=== PATIENT | female | born 1985 | race African-American/Black ===

== ENCOUNTER 2021-02-04 19:42 | Inpatient (IN) | payer OTHER ==
[2021-02-04] MEDS ORDERED: LACTATED RINGERS SOLUTION 1,000 ML IV STA (20:01)
[2021-02-04] MEDS ORDERED: morphine CARPU-JECT 4 MG/1 ML DISP.SYRIN IVPUSH ONE (20:27)
[2021-02-04] MEDS ORDERED: chlordiazePOXIDE HCL 25 MG CAPSULE PO ONE (20:27)
[2021-02-04 20:34] LABS: BASO % 0.8 % (0-2.0); EOS % 0.9 % (0-4.5); HEMATOCRIT 39.3 % (32.4-45.2); HEMOGLOBIN 12.8 GM/dL (10.7-15.3); LYMPH % 39.8 % (8-40); MCH 26.5 pg (25.7-33.7); MCHC 32.6 g/dl (32.0-36.0); MEAN CELL VOLUME 81.3 fl (80-96); MEAN PLT VOLUME 8.8 fl (7.5-11.1); NEUT % 51.5 % (42.8-82.8); PLATELET COUNT 142 K/MM3 (134-434); RBC 4.83 M/mm3 (3.60-5.2); RDW 16.9 % (11.6-15.6)
[2021-02-04 20:37] LABS: EPI CELLS 19 /uL (0-25.1); HYALINE CASTS 0 /uL (0-3.1); URINE APPEARANCE CLEAR; URINE BACTERIA 326 /uL (0-1359); URINE BILIRUBIN NEGATIVE (NEGATIVE); URINE COLOR YELLOW; URINE GLUCOSE (UA) NEGATIVE (NEGATIVE); URINE KETONE NEGATIVE (NEGATIVE); URINE LEUK ESTERASE TRACE (NEGATIVE); URINE NITRITE NEGATIVE (NEGATIVE); URINE PROTEIN NEGATIVE (NEGATIVE); URINE RBC 28 /uL (0-23.9); URINE WBC 34 /uL (0-25.8)
[2021-02-04 20:45] LABS: OPIATES, URI NEGATIVE ng/ml (CUTOFF=300); PHENCYCLIDINE,URINE NEGATIVE ng/ml (CUTOFF=25); URINE AMPHETAMINES NEGATIVE ng/ml (CUTOFF=500); URINE BARBITURATES NEGATIVE ng/ml (CUTOFF=200)
[2021-02-04 20:46] LABS: COCAINE, UR NEGATIVE ng/ml (CUTOFF=300); METHADONE, UR NEGATIVE ng/ml (CUTOFF=300)
[2021-02-04 20:48] LABS: URINE BENZODIAZEPINES POSITIVE ng/ml (CUTOFF=200)
[2021-02-04 20:57] LABS: CALCIUM 8.5 mg/dL (8.5-10.1)
[2021-02-04 20:58] LABS: ALBUMIN 3.7 g/dl (3.4-5.0); BLOOD UREA NITROGEN 3.8 mg/dL (7-18)
[2021-02-04 21:00] LABS: CREATININE 0.7 mg/dL (0.55-1.3)
[2021-02-04 21:02] LABS: BILIRUBIN,TOTAL 0.4 mg/dL (0.2-1); TOT PROT 7.3 g/dl (6.4-8.2)
[2021-02-04] MEDS ORDERED: LIDOCAINE VISCOUS 2% ORAL/TOP 20 ML UNIT-DOSE CUP MM ONE (21:27)
[2021-02-04] MEDS ORDERED: FAMOTIDINE 10 MG TABLET PO ONE (21:27)
[2021-02-04] MEDS ORDERED: MAG HYDROX/AL HYDROX/SIMETH 30 ML UNIT-DOSE CUP PO ONE (21:27)
[2021-02-04] MEDS ORDERED: LIDOCAINE VISCOUS 2% ORAL/TOP 20 ML UNIT-DOSE CUP ONE (21:31)
[2021-02-04] MEDS ORDERED: morphine SULFATE 4 MG/ML VIAL ONE (21:32)
[2021-02-04] MEDS ORDERED: diazePAM CARPU-JECT 10 MG/2 ML DISP.SYRIN IVPUSH ONE (21:33)
[2021-02-04] MEDS ORDERED: FAMOTIDINE 10 MG TABLET ONE (21:33)
[2021-02-04] MEDS ORDERED: MAG HYDROX/AL HYDROX/SIMETH 30 ML UNIT-DOSE CUP ONE (21:33)
[2021-02-04] MEDS ORDERED: chlordiazePOXIDE HCL 25 MG CAPSULE ONE (21:33)
[2021-02-04] MEDS ORDERED: diazePAM CARPU-JECT 10 MG/2 ML DISP.SYRIN ONE (22:10)
[2021-02-04] MEDS ORDERED: LACTATED RINGERS SOLUTION 1000 ML INFUS.BAG IV ONE (23:54)
[2021-02-05] MEDS ORDERED: morphine CARPU-JECT 4 MG/1 ML DISP.SYRIN IVPUSH ONE (01:47)
[2021-02-05] MEDS ORDERED: MORPHINE SULFATE 2 MG/ML VIAL ONE ×2 (02:31→06:31)
[2021-02-05] MEDS ORDERED: amLODIPine BESYLATE 5 MG TABLET (FP) PO ONE (03:30)
[2021-02-05] MEDS ORDERED: ALBUTEROL SO4 HFA INHALER IH PRN (03:41)
[2021-02-05] MEDS ORDERED: ONDANSETRON 4 MG/2 ML VIAL IVPUSH PRN (03:44)
[2021-02-05] MEDS ORDERED: amLODIPine BESYLATE 5 MG TABLET (FP) ONE (04:19)
[2021-02-05] MEDS: LACTATED RINGERS SOLUTION 1,000 ML IV SCH ×2 (04:27→10:49)
[2021-02-05 05:47] LABS: BASO % 0.9 % (0-2.0); EOS % 0.4 % (0-4.5); HEMATOCRIT 34.5 % (32.4-45.2); HEMOGLOBIN 11.3 GM/dL (10.7-15.3); LYMPH % 41.2 % (8-40); MCH 26.5 pg (25.7-33.7); MCHC 32.9 g/dl (32.0-36.0); MEAN CELL VOLUME 80.6 fl (80-96); MEAN PLT VOLUME 8.4 fl (7.5-11.1); MONO % 8.3 % (3.8-10.2); NEUT % 49.2 % (42.8-82.8); PLATELET COUNT 113 K/MM3 (134-434); RBC 4.27 M/mm3 (3.60-5.2); RDW 16.9 % (11.6-15.6); WHITE BLOOD COUNT 4.5 K/mm3 (4.0-10.0)
[2021-02-05 06:03] LABS: BLOOD UREA NITROGEN 4.2 mg/dL (7-18); MAGNESIUM 1.7 mg/dL (1.8-2.4)
[2021-02-05 06:06] LABS: CREATININE 0.7 mg/dL (0.55-1.3)
[2021-02-05] MEDS ORDERED: MAGNESIUM SULF 50% (8.12 MEQ/2 ML-1 GM VIAL) IVPB ONE (06:06)
[2021-02-05 06:08] LABS: TOT PROT 5.9 g/dl (6.4-8.2)
[2021-02-05] MEDS ORDERED: MAGNESIUM SULFATE IN WATER 2 GM/50 ML IVPB IVPB ONE (06:21)
[2021-02-05] MEDS ORDERED: LORazepam 2 MG/ML SDV VIAL ONE ×2 (06:30→09:26)
[2021-02-05] MEDS: ' IVPUSH PRN ×4 (06:48→21:06)
[2021-02-05] MEDS: LORazepam 2 MG/ML SDV VIAL IVPUSH PRN ×2 (06:48→09:37)
[2021-02-05] MEDS ORDERED: ENOXAPARIN NA (PORCINE) 40 MG/0.4 ML DISP.SYRIN SQ ONE (09:21)
[2021-02-05] MEDS ORDERED: THIAMINE HCL 200 MG/2 ML VIAL ONE (09:21)
[2021-02-05] MEDS: THIAMINE HCL 200 MG/2 ML VIAL IVPB SCH (09:30)
[2021-02-05] MEDS: ENOXAPARIN NA (PORCINE) 40 MG/0.4 ML DISP.SYRIN SQ SCH (09:30)
[2021-02-05 13:24] VITALS: BMI 24.5
[2021-02-05] MEDS ORDERED: LORazepam 2 MG TABLET PO ONE (17:08)
[2021-02-05] MEDS ORDERED: LORazepam 1 MG TABLET PO PRN (17:08)
[2021-02-05] MEDS: LACTATED RINGERS SOLUTION 1,000 ML/1,000 ML INFUS.BAG IV SCH (17:55)
[2021-02-05] MEDS: LORazepam 1 MG TABLET PO SCH ×2 (17:56→23:04)
[2021-02-06] MEDS: LACTATED RINGERS SOLUTION 1,000 ML/1,000 ML INFUS.BAG IV SCH ×3 (01:45→23:19)
[2021-02-06] MEDS: ' IVPUSH PRN ×5 (01:49→21:53)
[2021-02-06] MEDS: LORazepam 1 MG TABLET PO SCH ×4 (04:46→22:21)
[2021-02-06 08:52] LABS: BASO % 0.4 % (0-2.0); EOS % 1.4 % (0-4.5); HEMATOCRIT 33.8 % (32.4-45.2); HEMOGLOBIN 10.9 GM/dL (10.7-15.3); LYMPH % 34.4 % (8-40); MCH 26.3 pg (25.7-33.7); MCHC 32.2 g/dl (32.0-36.0); MEAN CELL VOLUME 81.6 fl (80-96); MEAN PLT VOLUME 9.2 fl (7.5-11.1); MONO % 8.6 % (3.8-10.2); NEUT % 55.2 % (42.8-82.8); PLATELET COUNT 104 K/MM3 (134-434); RBC 4.14 M/mm3 (3.60-5.2); RDW 17.2 % (11.6-15.6); WHITE BLOOD COUNT 3.5 K/mm3 (4.0-10.0)
[2021-02-06 09:09] LABS: INR 0.95 (0.83-1.09); PROTHROMBIN TIME (PATIENT) 11.7 SEC (9.7-13.0)
[2021-02-06 09:28] LABS: ALBUMIN 2.9 g/dl (3.4-5.0)
[2021-02-06 09:30] LABS: BILIRUBIN,DIRECT 0.3 mg/dL (0.0-0.2)
[2021-02-06 09:32] LABS: BILIRUBIN,TOTAL 0.8 mg/dL (0.2-1); TOT PROT 5.7 g/dl (6.4-8.2)
[2021-02-06 09:35] LABS: CALCIUM 8.4 mg/dL (8.5-10.1)
[2021-02-06 09:36] LABS: BLOOD UREA NITROGEN 4.3 mg/dL (7-18); MAGNESIUM 2.2 mg/dL (1.8-2.4)
[2021-02-06 09:39] LABS: CREATININE 0.6 mg/dL (0.55-1.3); PHOSPHOROUS 3.8 mg/dL (2.5-4.9)
[2021-02-06] MEDS ORDERED: DEXTROSE 10%-WATER - 1,000 ML IV SCH (10:00)
[2021-02-06] MEDS ORDERED: amLODIPine BESYLATE 5 MG TABLET (FP) PO SCH (10:00)
[2021-02-06] MEDS ORDERED: D5-1/2NS+40 MEQ KCL - 40 MEQ/1,000 ML INFUS.BAG IV SCH (10:00)
[2021-02-06] MEDS ORDERED: DEXTROSE 5%-LACTATED RINGERS 1,000 ML IV SCH ×2 (10:00)
[2021-02-06] MEDS: amLODIPine BESYLATE 5 MG TABLET (FP) PO SCH (10:32)
[2021-02-06] MEDS: ENOXAPARIN NA (PORCINE) 40 MG/0.4 ML DISP.SYRIN SQ SCH (10:33)
[2021-02-06] MEDS: THIAMINE HCL 200 MG/2 ML VIAL IVPB SCH (10:34)
[2021-02-06] MEDS ORDERED: PT OWN MED DRAWER 7, Y5N ONE (14:28)
[2021-02-07] MEDS: ' IVPUSH PRN ×2 (02:05→06:53)
[2021-02-07] MEDS: LACTATED RINGERS SOLUTION 1,000 ML/1,000 ML INFUS.BAG IV SCH ×2 (04:20→10:44)
[2021-02-07] MEDS: LORazepam 1 MG TABLET PO SCH ×3 (05:31→17:00)
[2021-02-07 08:34] LABS: BASO % 0.6 % (0-2.0); EOS % 1.6 % (0-4.5); HEMATOCRIT 34.4 % (32.4-45.2); HEMOGLOBIN 11.2 GM/dL (10.7-15.3); LYMPH % 42.6 % (8-40); MCH 26.2 pg (25.7-33.7); MCHC 32.4 g/dl (32.0-36.0); MEAN CELL VOLUME 80.8 fl (80-96); MEAN PLT VOLUME 9.5 fl (7.5-11.1); MONO % 9.5 % (3.8-10.2); NEUT % 45.7 % (42.8-82.8); PLATELET COUNT 105 K/MM3 (134-434); RBC 4.26 M/mm3 (3.60-5.2); RDW 17.6 % (11.6-15.6); WHITE BLOOD COUNT 4.2 K/mm3 (4.0-10.0)
[2021-02-07 08:36] LABS: CHLORIDE 107 mmol/L (98-107); SODIUM 141 mmol/L (136-145)
[2021-02-07 08:42] LABS: ANION GAP 5 MMOL/L (8-16); CO2 30 mmol/L (21-32); MAGNESIUM 2.1 mg/dL (1.8-2.4); SGPT/ALT 44 U/L (13-61)
[2021-02-07 08:43] LABS: CREATININE 0.6 mg/dL (0.55-1.3); SGOT/AST 81 U/L (15-37)
[2021-02-07 08:47] LABS: CALCIUM 8.8 mg/dL (8.5-10.1)
[2021-02-07 08:49] LABS: ALK PHOS 156 U/L (45-117); BILIRUBIN,TOTAL 0.5 mg/dL (0.2-1); GLUCOSE,RANDOM 89 mg/dL (74-106); LDL CHOLESTEROL (ONLY SJRH) 42 mg/dL (5-100)
[2021-02-07 08:50] LABS: HDL CHOLESTEROL 127 mg/dL (40-60)
[2021-02-07 08:51] LABS: CHOLESTEROL 193 mg/dL (50-200); PHOSPHOROUS 4.6 mg/dL (2.5-4.9)
[2021-02-07 08:52] LABS: TRIGLYCERIDES 83 mg/dL (0-150)
[2021-02-07 09:01] LABS: BLOOD UREA NITROGEN 2.9 mg/dL (7-18)
[2021-02-07] MEDS: amLODIPine BESYLATE 5 MG TABLET (FP) PO SCH (09:17)
[2021-02-07] MEDS: ENOXAPARIN NA (PORCINE) 40 MG/0.4 ML DISP.SYRIN SQ SCH (09:17)
[2021-02-07] MEDS: THIAMINE HCL 200 MG/2 ML VIAL IVPB SCH (09:18)
[2021-02-07] MEDS ORDERED: POTASSIUM CHLORIDE TABS 20 MEQ TABLET.ER (FP) PO ONE (09:28)
[2021-02-07] MEDS ORDERED: ACETAMINOPHEN 325 MG TABLET (FP) PO PRN (10:12)
[2021-02-07 15:27] VITALS: BP 128/80; PULSE 72; TEMP 98.8
[2021-02-07 17:07] LABS: HEP B CORE AB, TOT Positive (Negative)
[2021-02-08] MEDS ORDERED: LORazepam 0.5 MG TABLET PO PRN
[2021-02-08] MEDS ORDERED: LORazepam 0.5 MG TABLET PO SCH (05:00)
[2021-02-09] MEDS ORDERED: LORazepam 0.5 MG TABLET PO ONE (05:00)
== END 2021-02-07 18:23 | disposition other institution (70) | DRG 282 ==
LOC: JER 19:42 → JERBED 02-05 02:35 → J5S 02-05 09:39
PROVIDERS: ADMIT Internal Medicine; ATTEND Student in an Organized Health Care Education/Training Program
PROC: HZ2ZZZZ Detoxification Services for Substance Abuse Treatment (ICD-10-PCS; principal; 2021-02-05)
DX: K85.20 Alcohol induced acute pancreatitis without necrosis or infection (principal); I10 Essential (primary) hypertension; F10.239 Alcohol dependence with withdrawal, unspecified; F10.288 Alcohol dependence with other alcohol-induced disorder; F17.210 Nicotine dependence, cigarettes, uncomplicated; D69.59 Other secondary thrombocytopenia; D61.818 Other pancytopenia; D72.819 Decreased white blood cell count, unspecified
CPT/HCPCS: 36415; 74177-TC; 74181-TC; 76705-TC; 80048; 80053; 80061; 80076; 80307; 81003; 82103; 82607; 82728; 82746; 83516; 83540; 83550; 83690; 83721; 83735; 84100; 84703; 85025; 85610; 86038; 86704; 86706; 86707; 86708; 86709; 87086; 87340; 87522; 93005; 93010; 97116-GP; 97162-GP; 99285-25; C9803; Q9967; U0003; U0005

== ENCOUNTER 2021-02-07 18:52 | Inpatient (IN) | payer OTHER ==
[2021-02-07 19:42] VITALS: BMI 24.8
[2021-02-07] MEDS ORDERED: LORazepam 0.5 MG TABLET PO PRN (20:44)
[2021-02-07] MEDS ORDERED: METHOCARBAMOL 500 MG TABLET PO PRN (20:47)
[2021-02-07] MEDS ORDERED: ACETAMINOPHEN 325 MG TABLET (FP) PO PRN ×2 (20:47)
[2021-02-07] MEDS ORDERED: MAGNESIUM CITRATE 300 ML BOTTLE PO PRN (20:47)
[2021-02-07] MEDS ORDERED: BISMUTH SUBSALICYLATE 524 MG/30 ML UD PO PRN (20:47)
[2021-02-07] MEDS ORDERED: MENTHOL/PHENOL 1 EACH UD MM PRN (20:47)
[2021-02-07] MEDS ORDERED: NICOTINE POLACRILEX 2 MG GUM BUC PRN (20:47)
[2021-02-07] MEDS ORDERED: ONDANSETRON *ODT* 4 MG TABLET SL PRN (20:47)
[2021-02-07] MEDS ORDERED: MAGNESIUM HYDROX 2400MG/30ML ORAL SUSPENSION 30 ML CUP PO PRN (20:47)
[2021-02-07] MEDS ORDERED: IBUPROFEN 400 MG TABLET (FP) PO PRN (20:47)
[2021-02-07] MEDS ORDERED: MAG HYDROX/AL HYDROX/SIMETH 30 ML UNIT-DOSE CUP PO PRN (20:47)
[2021-02-07] MEDS ORDERED: LORazepam 1 MG TABLET PO ONE (22:00)
[2021-02-07] MEDS: THIAMINE HCL 100 MG TABLET (FP) PO SCH (23:29)
[2021-02-07] MEDS: hydrOXYzine PAMOATE 25 MG CAPSULE (FP) PO SCH (23:29)
[2021-02-07] MEDS: MELATONIN 5 MG TABLETS PO SCH (23:35)
[2021-02-08] MEDS: hydrOXYzine PAMOATE 25 MG CAPSULE (FP) PO SCH ×5 (06:04→22:27)
[2021-02-08] MEDS: LORazepam 0.5 MG TABLET PO SCH ×4 (06:04→22:25)
[2021-02-08] MEDS ORDERED: amLODIPine BESYLATE 5 MG TABLET (FP) PO SCH (10:00)
[2021-02-08] MEDS: PRENATAL VITAMINS W/ FOLIC ACID TABLET (FP) PO SCH (10:24)
[2021-02-08] MEDS ORDERED: ALBUTEROL SO4 HFA INHALER IH PRN (11:38)
[2021-02-08] MEDS: MELATONIN 5 MG TABLETS PO SCH (22:27)
[2021-02-08] MEDS: THIAMINE HCL 100 MG TABLET (FP) PO SCH (22:27)
[2021-02-09] MEDS: LORazepam 0.5 MG TABLET PO SCH ×2 (06:14→18:07)
[2021-02-09] MEDS: hydrOXYzine PAMOATE 25 MG CAPSULE (FP) PO SCH ×5 (06:16→22:42)
[2021-02-09] MEDS ORDERED: amLODIPine BESYLATE 10 MG TABLET (FP) PO SCH (10:00)
[2021-02-09] MEDS: PRENATAL VITAMINS W/ FOLIC ACID TABLET (FP) PO SCH (11:02)
[2021-02-09] MEDS: MELATONIN 5 MG TABLETS PO SCH (22:42)
[2021-02-09] MEDS: THIAMINE HCL 100 MG TABLET (FP) PO SCH (22:42)
[2021-02-10] MEDS ORDERED: LORazepam 0.5 MG TABLET PO ONE (05:00)
[2021-02-10] MEDS: hydrOXYzine PAMOATE 25 MG CAPSULE (FP) PO SCH (05:58)
[2021-02-10 09:25] VITALS: BP 122/77; PULSE 50; TEMP 98
[2021-02-11 07:07] LABS: SARS-CoV-2 NAA NOT DETECTED
== END 2021-02-10 10:00 | disposition home or self-care (01) | DRG 775 ==
LOC: YASAS 18:52 → Y6N 22:04
PROVIDERS: ADMIT Allergy & Immunology; ATTEND Allergy & Immunology
PROC: HZ2ZZZZ Detoxification Services for Substance Abuse Treatment (ICD-10-PCS; principal; 2021-02-07)
DX: F10.230 Alcohol dependence with withdrawal, uncomplicated (principal); F13.230 Sedative, hypnotic or anxiolytic dependence with withdrawal, uncomplicated; F17.210 Nicotine dependence, cigarettes, uncomplicated; I10 Essential (primary) hypertension; J45.909 Unspecified asthma, uncomplicated; K82.1 Hydrops of gallbladder; K85.20 Alcohol induced acute pancreatitis without necrosis or infection; Z91.048 Other nonmedicinal substance allergy status
CPT/HCPCS: 36415; 71046-TC-FY; 81025; 86780; C9803; U0003; U0005

== ENCOUNTER 2021-02-28 18:22 | Inpatient (IN) | payer OTHER ==
[2021-02-28] MEDS ORDERED: LACTATED RINGERS SOLUTION 1000 ML INFUS.BAG IV ONE (19:28)
[2021-02-28] MEDS ORDERED: ACETAMINOPHEN 1000 MG/100 ML VIAL (NON FORMULARY) IVPB ONE (19:28)
[2021-02-28 19:48] LABS: BASO % 0.4 % (0-2.0); EOS % 0.5 % (0-4.5); HEMATOCRIT 40.2 % (32.4-45.2); HEMOGLOBIN 12.9 GM/dL (10.7-15.3); LYMPH % 36.5 % (8-40); MEAN CELL VOLUME 81.1 fl (80-96); MEAN PLT VOLUME 9.2 fl (7.5-11.1); MONO % 12.6 % (3.8-10.2); PLATELET COUNT 147 K/MM3 (134-434); RBC 4.96 M/mm3 (3.60-5.2); RDW 20.4 % (11.6-15.6); WHITE BLOOD COUNT 3.5 K/mm3 (4.0-10.0)
[2021-02-28] MEDS ORDERED: ONDANSETRON 4 MG/2 ML VIAL IVPUSH ONE (19:59)
[2021-02-28 20:03] LABS: CALCIUM 8.9 mg/dL (8.5-10.1)
[2021-02-28 20:04] LABS: ALBUMIN 3.2 g/dl (3.4-5.0); BLOOD UREA NITROGEN 5.4 mg/dL (7-18)
[2021-02-28 20:07] LABS: CREATININE 0.6 mg/dL (0.55-1.3)
[2021-02-28 20:08] LABS: BILIRUBIN,TOTAL 0.5 mg/dL (0.2-1)
[2021-02-28] MEDS ORDERED: FAMOTIDINE 20 MG/50 ML IVPB 20 MG/50 ML MG IVPB ONE ×2 (20:27→20:34)
[2021-02-28] MEDS ORDERED: ONDANSETRON 4 MG/2 ML VIAL ONE (20:33)
[2021-02-28 20:47] LABS: EPI CELLS 9 /uL (0-25.1); HYALINE CASTS 1 /uL (0-3.1); PH,URINE 5.5 (5.0-8.0); URINE APPEARANCE CLEAR; URINE BACTERIA 209 /uL (0-1359); URINE BILIRUBIN NEGATIVE (NEGATIVE); URINE COLOR YELLOW; URINE GLUCOSE (UA) NEGATIVE (NEGATIVE); URINE KETONE NEGATIVE (NEGATIVE); URINE LEUK ESTERASE NEGATIVE (NEGATIVE); URINE NITRITE NEGATIVE (NEGATIVE); URINE PROTEIN NEGATIVE (NEGATIVE); URINE RBC 3 /uL (0-23.9); URINE WBC 7 /uL (0-25.8)
[2021-02-28] MEDS ORDERED: morphine CARPU-JECT 2 MG/1 ML DISP.SYRIN IVPUSH ONE (21:18)
[2021-02-28] MEDS ORDERED: HYDROmorphone HCL CARPU-JECT 2 MG/1 ML DISP.SYRIN IVPUSH STA (23:14)
[2021-02-28] MEDS ORDERED: MORPHINE SULFATE 2 MG/ML VIAL ONE (23:29)
[2021-03-01] MEDS ORDERED: SODIUM CHLORIDE 0.9% 500 ML INFUS.BAG IV ONE (00:52)
[2021-03-01] MEDS ORDERED: LORazepam 2 MG/ML SDV VIAL IVPUSH ONE ×2 (00:53→01:04)
[2021-03-01] MEDS ORDERED: LORazepam 2 MG/ML SDV VIAL ONE (01:25)
[2021-03-01] MEDS ORDERED: THIAMINE HCL 200 MG/2 ML VIAL IVPB SCH (02:45)
[2021-03-01] MEDS ORDERED: LACTATED RINGERS SOLUTION 1,000 ML IV SCH (03:15)
[2021-03-01] MEDS ORDERED: LORazepam 1 MG TABLET PO PRN (03:18)
[2021-03-01] MEDS ORDERED: MAG HYDROX/AL HYDROX/SIMETH 30 ML UNIT-DOSE CUP PO PRN (03:19)
[2021-03-01] MEDS ORDERED: FOLIC ACID INJECTION - 1 MG, THIAMINE HCL 200 MG, MULTIVIT INJECTION ADULT 10 ML in SOD... IVPB ONE (04:45)
[2021-03-01] MEDS ORDERED: LORazepam 1 MG TABLET ONE (05:16)
[2021-03-01] MEDS: LORazepam 1 MG TABLET PO SCH ×4 (05:19→22:28)
[2021-03-01 05:29] LABS: INR 0.97 (0.83-1.09)
[2021-03-01 05:35] LABS: ALBUMIN 2.9 g/dl (3.4-5.0); BLOOD UREA NITROGEN 5.4 mg/dL (7-18); CALCIUM 8.2 mg/dL (8.5-10.1); MAGNESIUM 2.1 mg/dL (1.8-2.4)
[2021-03-01 05:38] LABS: BILIRUBIN,DIRECT 0.4 mg/dL (0.0-0.2)
[2021-03-01 05:39] LABS: PHOSPHOROUS 4.3 mg/dL (2.5-4.9)
[2021-03-01 05:40] LABS: BILIRUBIN,TOTAL 0.8 mg/dL (0.2-1); TOT PROT 6.1 g/dl (6.4-8.2)
[2021-03-01 05:47] LABS: CREATININE 0.6 mg/dL (0.55-1.3)
[2021-03-01] MEDS: FOLIC ACID 1 MG TABLET (FP) PO SCH (10:50)
[2021-03-01] MEDS: ENOXAPARIN NA (PORCINE) 40 MG/0.4 ML DISP.SYRIN SQ SCH (10:50)
[2021-03-01] MEDS: amLODIPine BESYLATE 5 MG TABLET (FP) PO SCH (10:50)
[2021-03-01] MEDS: THIAMINE HCL 100 MG TABLET (FP) PO SCH ×2 (10:50→22:28)
[2021-03-01] MEDS ORDERED: PNEUMOC 13-VAL CONJ-DIP CRM/PF 0.5 ML DISP.SYRIN IM ONE (12:05)
[2021-03-01 12:15] VITALS: BMI 23.7
[2021-03-01] MEDS ORDERED: PNEUMOCOCCAL 23 VACCINE 0.5 ML VIAL IM ONE (12:15)
[2021-03-01] MEDS: MORPHINE SULFATE 2 MG/ML VIAL IVPUSH PRN ×3 (12:46→22:32)
[2021-03-01] MEDS ORDERED: LACTATED RINGERS SOLUTION 1,000 ML/1,000 ML INFUS.BAG IV SCH (13:00)
[2021-03-01] MEDS: LACTATED RINGERS SOLUTION 1,000 ML/1,000 ML INFUS.BAG IV SCH (17:34)
[2021-03-02] MEDS: MORPHINE SULFATE 2 MG/ML VIAL IVPUSH PRN ×5 (02:07→20:17)
[2021-03-02] MEDS: LACTATED RINGERS SOLUTION 1,000 ML/1,000 ML INFUS.BAG IV SCH ×3 (03:44→20:53)
[2021-03-02] MEDS: LORazepam 1 MG TABLET PO SCH ×4 (05:19→23:27)
[2021-03-02 06:56] LABS: BASO % 0.3 % (0-2.0); HEMATOCRIT 34.1 % (32.4-45.2); HEMOGLOBIN 10.8 GM/dL (10.7-15.3); LYMPH % 34.6 % (8-40); MCHC 31.7 g/dl (32.0-36.0); MEAN CELL VOLUME 81.9 fl (80-96); MEAN PLT VOLUME 9.7 fl (7.5-11.1); MONO % 10.9 % (3.8-10.2); NEUT % 53.2 % (42.8-82.8); PLATELET COUNT 99 K/MM3 (134-434); RBC 4.16 M/mm3 (3.60-5.2); RDW 20.7 % (11.6-15.6); WHITE BLOOD COUNT 4.3 K/mm3 (4.0-10.0)
[2021-03-02 07:22] LABS: BLOOD UREA NITROGEN 5.7 mg/dL (7-18); CALCIUM 8.7 mg/dL (8.5-10.1)
[2021-03-02 07:23] LABS: MAGNESIUM 2.2 mg/dL (1.8-2.4)
[2021-03-02 07:26] LABS: CREATININE 0.6 mg/dL (0.55-1.3); PHOSPHOROUS 3.3 mg/dL (2.5-4.9)
[2021-03-02 08:59] LABS: ALBUMIN 2.5 g/dl (3.4-5.0)
[2021-03-02 09:01] LABS: BILIRUBIN,DIRECT 0.5 mg/dL (0.0-0.2)
[2021-03-02 09:03] LABS: TOT PROT 5.3 g/dl (6.4-8.2)
[2021-03-02 09:04] LABS: BILIRUBIN,TOTAL 1.1 mg/dL (0.2-1)
[2021-03-02] MEDS: ENOXAPARIN NA (PORCINE) 40 MG/0.4 ML DISP.SYRIN SQ SCH (09:53)
[2021-03-02] MEDS: THIAMINE HCL 100 MG TABLET (FP) PO SCH ×2 (09:54→22:08)
[2021-03-02] MEDS: FOLIC ACID 1 MG TABLET (FP) PO SCH (09:54)
[2021-03-02] MEDS: amLODIPine BESYLATE 5 MG TABLET (FP) PO SCH (09:54)
[2021-03-02 11:04] LABS: ANISOCYTOSIS 2+; MACROCYTOSIS 0; OVALOCYTE 2+; PLATELET ESTIMATE DECREASED; TARGET CELLS 2+; TEAR DROP CELLS 1+
[2021-03-02] MEDS ORDERED: DEXTROSE 5%-WATER - 50 ML IVPB ONE (16:45)
[2021-03-02] MEDS ORDERED: PIPERACILLIN/TAZOBACTAM 3.375 GM VIAL IVPB ONE (16:45)
[2021-03-02] MEDS: PIPERACILLIN/TAZOB 3.375 GM 3.375 GM in DEXTROSE 5%-WATER - 50 ML IVPB SCH (17:54)
[2021-03-03] MEDS ORDERED: LORazepam 0.5 MG TABLET PO PRN
[2021-03-03] MEDS: MORPHINE SULFATE 2 MG/ML VIAL IVPUSH PRN ×5 (00:28→19:45)
[2021-03-03] MEDS: LACTATED RINGERS SOLUTION 1,000 ML/1,000 ML INFUS.BAG IV SCH ×5 (01:06→19:39)
[2021-03-03] MEDS ORDERED: PIPERACILLIN/TAZOBACTAM 3.375 GM VIAL IVPB ONE ×2 (01:38→08:43)
[2021-03-03] MEDS ORDERED: DEXTROSE 5%-WATER - 50 ML IVPB ONE ×2 (01:38→08:44)
[2021-03-03] MEDS: PIPERACILLIN/TAZOB 3.375 GM 3.375 GM in DEXTROSE 5%-WATER - 50 ML IVPB SCH ×2 (01:49→09:10)
[2021-03-03] MEDS: LORazepam 0.5 MG TABLET PO SCH ×4 (05:19→23:13)
[2021-03-03 07:20] LABS: BASO % 0.3 % (0-2.0); EOS % 0.8 % (0-4.5); HEMATOCRIT 33.6 % (32.4-45.2); HEMOGLOBIN 10.9 GM/dL (10.7-15.3); LYMPH % 25.4 % (8-40); MCH 26.5 pg (25.7-33.7); MCHC 32.4 g/dl (32.0-36.0); MEAN CELL VOLUME 81.9 fl (80-96); MEAN PLT VOLUME 9.5 fl (7.5-11.1); MONO % 11.2 % (3.8-10.2); NEUT % 62.3 % (42.8-82.8); PLATELET COUNT 89 K/MM3 (134-434); RDW 21.7 % (11.6-15.6); WHITE BLOOD COUNT 4.5 K/mm3 (4.0-10.0)
[2021-03-03 07:43] LABS: BLOOD UREA NITROGEN 4.1 mg/dL (7-18); CALCIUM 8.8 mg/dL (8.5-10.1)
[2021-03-03 07:44] LABS: ALBUMIN 2.6 g/dl (3.4-5.0)
[2021-03-03 07:46] LABS: BILIRUBIN,DIRECT 0.4 mg/dL (0.0-0.2)
[2021-03-03 07:47] LABS: CREATININE 0.5 mg/dL (0.55-1.3); PHOSPHOROUS 3.8 mg/dL (2.5-4.9)
[2021-03-03 07:48] LABS: BILIRUBIN,TOTAL 0.8 mg/dL (0.2-1); TOT PROT 5.3 g/dl (6.4-8.2)
[2021-03-03] MEDS: amLODIPine BESYLATE 5 MG TABLET (FP) PO SCH (09:10)
[2021-03-03] MEDS: FOLIC ACID 1 MG TABLET (FP) PO SCH (09:21)
[2021-03-03] MEDS: THIAMINE HCL 100 MG TABLET (FP) PO SCH ×2 (09:22→21:02)
[2021-03-03] MEDS ORDERED: PIPERACILLIN/TAZOB 3.375 GM 3.375 GM in DEXTROSE 5%-WATER - 50 ML IVPB SCH (18:00)
[2021-03-04] MEDS: MORPHINE SULFATE 2 MG/ML VIAL IVPUSH PRN ×5 (00:37→19:51)
[2021-03-04] MEDS: LACTATED RINGERS SOLUTION 1,000 ML/1,000 ML INFUS.BAG IV SCH ×4 (04:15→23:50)
[2021-03-04] MEDS ORDERED: LORazepam 0.5 MG TABLET PO ONE (05:00)
[2021-03-04 07:45] LABS: BASO % 0.3 % (0-2.0); EOS % 0.6 % (0-4.5); HEMOGLOBIN 10.9 GM/dL (10.7-15.3); LYMPH % 27.8 % (8-40); MCH 26.2 pg (25.7-33.7); MEAN CELL VOLUME 81.7 fl (80-96); MEAN PLT VOLUME 9.6 fl (7.5-11.1); MONO % 14.1 % (3.8-10.2); NEUT % 57.2 % (42.8-82.8); PLATELET COUNT 92 K/MM3 (134-434); RBC 4.16 M/mm3 (3.60-5.2); RDW 21.7 % (11.6-15.6)
[2021-03-04 08:08] LABS: ALBUMIN 2.5 g/dl (3.4-5.0); CALCIUM 8.6 mg/dL (8.5-10.1)
[2021-03-04 08:10] LABS: BLOOD UREA NITROGEN 3.4 mg/dL (7-18)
[2021-03-04 08:13] LABS: CREATININE 0.4 mg/dL (0.55-1.3)
[2021-03-04 08:14] LABS: BILIRUBIN,TOTAL 0.9 mg/dL (0.2-1); TOT PROT 5.5 g/dl (6.4-8.2)
[2021-03-04 08:55] LABS: ANISOCYTOSIS 1+; PLATELET ESTIMATE DECREASED; TARGET CELLS 1+
[2021-03-04] MEDS: MULTIVITAMINS (DAILY MVI) TABLET (FP) PO SCH (10:35)
[2021-03-04] MEDS: THIAMINE HCL 100 MG TABLET (FP) PO SCH ×2 (10:35→21:25)
[2021-03-04] MEDS: FOLIC ACID 1 MG TABLET (FP) PO SCH (10:35)
[2021-03-04] MEDS: amLODIPine BESYLATE 5 MG TABLET (FP) PO SCH (10:35)
[2021-03-05] MEDS: MORPHINE SULFATE 2 MG/ML VIAL IVPUSH PRN ×5 (00:29→18:48)
[2021-03-05] MEDS: LACTATED RINGERS SOLUTION 1,000 ML/1,000 ML INFUS.BAG IV SCH ×5 (06:46→21:23)
[2021-03-05 07:24] LABS: BASO % 0.2 % (0-2.0); EOS % 0.7 % (0-4.5); HEMATOCRIT 34.4 % (32.4-45.2); MCH 26.3 pg (25.7-33.7); MCHC 32.1 g/dl (32.0-36.0); MEAN CELL VOLUME 82.1 fl (80-96); MEAN PLT VOLUME 9.7 fl (7.5-11.1); MONO % 19.6 % (3.8-10.2); NEUT % 52.5 % (42.8-82.8); PLATELET COUNT 99 K/MM3 (134-434); RDW 22.4 % (11.6-15.6)
[2021-03-05 08:07] LABS: ALBUMIN 2.6 g/dl (3.4-5.0); CALCIUM 8.6 mg/dL (8.5-10.1)
[2021-03-05 08:10] LABS: BILIRUBIN,TOTAL 0.6 mg/dL (0.2-1); CREATININE 0.3 mg/dL (0.55-1.3); TOT PROT 5.4 g/dl (6.4-8.2)
[2021-03-05 08:55] LABS: ANISOCYTOSIS 1+; MACROCYTOSIS 1+; PLATELET ESTIMATE DECREASED; TARGET CELLS 1+
[2021-03-05] MEDS: MULTIVITAMINS (DAILY MVI) TABLET (FP) PO SCH (09:34)
[2021-03-05] MEDS: THIAMINE HCL 100 MG TABLET (FP) PO SCH ×2 (09:35→21:23)
[2021-03-05] MEDS: FOLIC ACID 1 MG TABLET (FP) PO SCH (09:35)
[2021-03-05] MEDS: amLODIPine BESYLATE 5 MG TABLET (FP) PO SCH (09:35)
[2021-03-05] MEDS: ENOXAPARIN NA (PORCINE) 40 MG/0.4 ML DISP.SYRIN SQ SCH (09:36)
[2021-03-06] MEDS: MORPHINE SULFATE 2 MG/ML VIAL IVPUSH PRN ×2 (00:53→05:54)
[2021-03-06] MEDS: LACTATED RINGERS SOLUTION 1,000 ML/1,000 ML INFUS.BAG IV SCH ×3 (00:55→10:00)
[2021-03-06 06:05] VITALS: PULSE 59
[2021-03-06] MEDS ORDERED: MORPHINE SULFATE 2 MG/ML VIAL IVPUSH PRN (08:08)
[2021-03-06 08:10] LABS: CHLORIDE 109 mmol/L (98-107); SODIUM 141 mmol/L (136-145)
[2021-03-06 08:11] LABS: CALCIUM 8.3 mg/dL (8.5-10.1)
[2021-03-06 08:12] LABS: ALBUMIN 2.4 g/dl (3.4-5.0); ANION GAP 7 MMOL/L (8-16); CO2 26 mmol/L (21-32); GLUCOSE,RANDOM 86 mg/dL (74-106)
[2021-03-06 08:15] LABS: CREATININE 0.4 mg/dL (0.55-1.3); SGOT/AST 184 U/L (15-37); SGPT/ALT 77 U/L (13-61)
[2021-03-06 08:17] LABS: BILIRUBIN,TOTAL 0.7 mg/dL (0.2-1); TOT PROT 5.3 g/dl (6.4-8.2)
[2021-03-06 08:18] LABS: ALK PHOS 162 U/L (45-117)
[2021-03-06 08:25] LABS: BLOOD UREA NITROGEN 1.6 mg/dL (7-18)
[2021-03-06 08:41] LABS: BASO % 0.4 % (0-2.0); EOS % 0.7 % (0-4.5); HEMATOCRIT 32.9 % (32.4-45.2); HEMOGLOBIN 10.5 GM/dL (10.7-15.3); MCH 26.3 pg (25.7-33.7); MEAN PLT VOLUME 9.5 fl (7.5-11.1); MONO % 19.5 % (3.8-10.2); NEUT % 50.4 % (42.8-82.8); PLATELET COUNT 108 K/MM3 (134-434); RBC 4.01 M/mm3 (3.60-5.2); RDW 22.3 % (11.6-15.6); WHITE BLOOD COUNT 4.8 K/mm3 (4.0-10.0)
[2021-03-06] MEDS ORDERED: PT OWN MED DRAWER 7, Y5N ONE (08:59)
[2021-03-06] MEDS: FOLIC ACID 1 MG TABLET (FP) PO SCH (10:00)
[2021-03-06] MEDS: THIAMINE HCL 100 MG TABLET (FP) PO SCH (10:00)
[2021-03-06] MEDS: MULTIVITAMINS (DAILY MVI) TABLET (FP) PO SCH (10:00)
[2021-03-06] MEDS: ENOXAPARIN NA (PORCINE) 40 MG/0.4 ML DISP.SYRIN SQ SCH (10:00)
[2021-03-06] MEDS: amLODIPine BESYLATE 5 MG TABLET (FP) PO SCH (10:00)
[2021-03-06 14:09] VITALS: BP 136/89; TEMP 98.1
== END 2021-03-06 18:41 | disposition home or self-care (01) | DRG 282 ==
LOC: JER 18:22 → JERBED 03-01 02:06 → J7W 03-01 09:34
PROVIDERS: ADMIT Hospitalist; ATTEND Internal Medicine
PROC: HZ2ZZZZ Detoxification Services for Substance Abuse Treatment (ICD-10-PCS; principal; 2021-03-01)
DX: K85.20 Alcohol induced acute pancreatitis without necrosis or infection (principal); I10 Essential (primary) hypertension; R10.12 Left upper quadrant pain; K29.20 Alcoholic gastritis without bleeding; R94.5 Abnormal results of liver function studies; F10.232 Alcohol dependence with withdrawal with perceptual disturbance; K76.0 Fatty (change of) liver, not elsewhere classified; R11.2 Nausea with vomiting, unspecified; D72.819 Decreased white blood cell count, unspecified; K64.9 Unspecified hemorrhoids; F17.210 Nicotine dependence, cigarettes, uncomplicated; R19.7 Diarrhea, unspecified; F39 Unspecified mood [affective] disorder; K82.1 Hydrops of gallbladder; Z98.84 Bariatric surgery status
CPT/HCPCS: 36415; 71045-TC-FY; 74178-TC; 74181-TC; 76705-TC; 80048; 80053; 80076; 80307; 81003; 82248; 83605; 83690; 83735; 84100; 84478; 84703; 85025; 85610; 85730; 86850; 86900; 86901; 87086; 90732; 93005; 93010; 99285-25; C9803; G0009; J0131; U0003; U0005